=== PATIENT | female | born 1935 | race Caucasian/White ===

== ENCOUNTER 2018-07-29 21:17 | Emergency (ER) | payer OTHER ==
[~2018-07-29] VITALS: Ht 147.3 cm; Wt 61.2 kg
[~2018-07-29 21:17] MED LIST: ALBU.083IS IH; ALBU3IS INH; ALBU90OI INH; ALBU90OI61 INH; ALEN70 PO; AMIT25 PO; AZEL137S NS; AZIT250 PO; Allegra-D 12 H1 EACH PO; BISA5EC PO; BUDE6HFA; BUDE6HFA INH; BUSP10 PO; CALCIUM 600 +1 EA10 PO; CONEST.625 PO; DOCU100 PO; ENDOCET 2.5-321 EACH PO; FEXPSEER PO; FISH1000 PO; FLUC100 PO; FURO40 PO; GUAI600T33 PO; HYDACE5 PO; HYDMOR2 PO; LEVFLO500 PO; LEVO750 PO; LIDO5TP TOP; LISHYD2025 PO; LOPE2C PO; METO25 PO; METO25ER PO; MIRALAX17 GM PO; Mucinex1200 MG PO; Mucinex600 MG PO; NICO21TP TOP; Neurontin 100100 MG PO; OXAYDO7.5 MG PO; OXYACE5T PO; PANT40 PO; POTCHL10ER PO; POTCHL20ER PO; PRED10 PO; PRED20 PO; PROLIA60 MG/1 ML SQ; Percocet 5-3251 EACH PO; Prednisone20 MG PO; Prevalite Pac4 G/PKT; Protonix40 MG PO; ROXICODONE5 MG PO; SENN187 PO; SODCHL.65S; TIOT18 IH; TIOT18 INH; TRAZ50 PO; VOLTAREN100 GM TOP; Ventolin Soln3 ML INH; Vitamin D2000 UNIT PO; Zithromax250 MG PO; [UNRECOGNIZED DRUG - OTHER] PO
[2018-07-29 22:28] LABS: Source, Urine Clean Catch
[2018-07-29 22:33] LABS: BASOPHILS ABSOLUTE AUTO 0.04 K/mm3 (0.00-0.23); BASOPHILS PERCENT AUTO 1 % (0-2); Bilirubin, Urine Neg (Neg); Blood, Urine Neg (Neg); EOSINOPHILS ABSOLUTE AUTO 0.19 K/mm3 (0.00-0.68); EOSINOPHILS PERCENT AUTO 3 % (0-6); Glucose Qualitative, Urine Neg (Neg); Hematocrit 44.4 % (33.0-51.0); Hemoglobin 14.5 g/dL (11.5-16.0); IMMATURE GRAN ABSOLUTE AUTO 0.02 K/mm3 (0.00-0.10); IMMATURE GRAN PERCENT AUTO 0 % (0-1); Ketones, Urine Neg (Neg); LYMPHOCYTES ABSOLUTE AUTO 2.36 K/mm3 (0.84-5.20); LYMPHOCYTES PERCENT AUTO 34 % (21-46); Leukocyte Esterase, Urine Neg (Neg); MONOCYTES ABSOLUTE AUTO 0.49 K/mm3 (0.16-1.47); MONOCYTES PERCENT AUTO 7 % (4-13); Mean Corpuscular HGB 29.8 pg (26.0-34.0); Mean Corpuscular HGB Conc 32.7 g/dL (31.5-36.5); Mean Corpuscular Volume 91 fL (80-100); Mean Platelet Volume 9.3 fL (9.1-12.4); NEUTROPHILS ABSOLUTE AUTO 3.76 K/mm3 (1.96-9.15); NEUTROPHILS PERCENT AUTO 55 % (41-73); Nitrite, Urine Neg (Neg); Platelet Count 318 K/mm3 (150-400); Protein, Urine Neg (Neg); RDW Coefficient Variation 12.9 % (11.7-14.2); RDW Standard Deviation 43.1 fL (35.1-46.3); Red Blood Cell Count 4.87 M/mm3 (3.80-5.20); Specific Gravity, Urine 1.015 (1.003-1.022); Urobilinogen, Urine NORM (Normal); White Blood Cell Count 6.86 K/mm3 (4.00-11.30)
[2018-07-29 22:35] LABS: Appearance, Urine Clear (Clear); Color, Urine Yellow (P-Yellow)
[2018-07-29 22:50] LABS: Albumin, Blood 3.9 g/dL (3.4-5.0); Albumin/Globulin Ratio 1.1 (0.8-1.8); Bilirubin, Total 0.3 mg/dL (0.1-1.0); Bun/Creatinine Ratio 16.7 (12.0-20.0); Calcium, Blood 9.4 mg/dL (8.5-10.1); Creatinine, Blood 1.14 mg/dL (0.40-1.00); Globulin, Blood 3.7 g/dL (2.2-4.0); Potassium, Blood 3.9 mmol/L (3.5-5.5); Total Protein, Blood 7.6 g/dL (6.4-8.2)
== END 2018-07-30 00:13 | disposition home or self-care (01) ==
LOC: ER 21:17
PROVIDERS: Physician Assistant
DX: I10 Essential (primary) hypertension (principal); N95.2 Postmenopausal atrophic vaginitis; Z88.0 Allergy status to penicillin; Z88.1 Allergy status to other antibiotic agents; Z79.899 Other long term (current) drug therapy; J44.9 Chronic obstructive pulmonary disease, unspecified; F41.9 Anxiety disorder, unspecified; K21.9 Gastro-esophageal reflux disease without esophagitis; F17.210 Nicotine dependence, cigarettes, uncomplicated
CPT/HCPCS: 36415; 80053; 81003; 84484; 85025; 93005; 93010; 99284-25

== ENCOUNTER 2018-08-23 20:24 | Emergency (ER) | payer OTHER ==
[~2018-08-23] VITALS: Ht 147.3 cm; Wt 59.0 kg
[2018-08-23 21:36] LABS: BASOPHILS ABSOLUTE AUTO 0.01 K/mm3 (0.00-0.23); BASOPHILS PERCENT AUTO 0 % (0-2); EOSINOPHILS PERCENT AUTO 0 % (0-6); Hematocrit 41.3 % (33.0-51.0); Hemoglobin 13.2 g/dL (11.5-16.0); IMMATURE GRAN ABSOLUTE AUTO 0.05 K/mm3 (0.00-0.10); IMMATURE GRAN PERCENT AUTO 1 % (0-1); LYMPHOCYTES ABSOLUTE AUTO 0.47 K/mm3 (0.84-5.20); LYMPHOCYTES PERCENT AUTO 6 % (21-46); MONOCYTES ABSOLUTE AUTO 0.33 K/mm3 (0.16-1.47); MONOCYTES PERCENT AUTO 4 % (4-13); Mean Corpuscular HGB 29.2 pg (26.0-34.0); Mean Corpuscular Volume 91 fL (80-100); NEUTROPHILS ABSOLUTE AUTO 6.64 K/mm3 (1.96-9.15); NEUTROPHILS PERCENT AUTO 89 % (41-73); Platelet Count 262 K/mm3 (150-400); RDW Coefficient Variation 13.2 % (11.7-14.2); RDW Standard Deviation 44.3 fL (35.1-46.3); Red Blood Cell Count 4.52 M/mm3 (3.80-5.20)
[2018-08-23 21:50] LABS: Alanine Aminotransfer (ALT/SGP 15 U/L (12-78); Albumin, Blood 3.9 g/dL (3.4-5.0); Albumin/Globulin Ratio 1.2 (0.8-1.8); Alk Phos 52 U/L (50-136); Anion Gap 13 mmol/L (6-16); Aspartate Aminotrans (AST/SGOT 19 U/L (12-37); Bilirubin, Total 0.6 mg/dL (0.1-1.0); Blood Urea Nitrogen 23 mg/dL (8-24); Bun/Creatinine Ratio 22.1 (12.0-20.0); CO2, Blood 25 mmol/L (21-32); Calcium, Blood 9.5 mg/dL (8.5-10.1); Chloride, Blood 98 mmol/L (98-108); Creatinine, Blood 1.04 mg/dL (0.40-1.00); Globulin, Blood 3.2 g/dL (2.2-4.0); Glomerular Filtration Rate 54 (60-); Glucose, Blood 134 mg/dL (70-99); Potassium, Blood 3.9 mmol/L (3.5-5.5); Sodium, Blood 136 mmol/L (136-145); Total Protein, Blood 7.1 g/dL (6.4-8.2); Troponin I <0.015 ng/mL (0.000-0.040)
[2018-08-23 22:50] LABS: Source, Urine Clean Catch
[2018-08-23 22:54] LABS: Bilirubin, Urine Neg (Neg); Blood, Urine 2+ (Neg); Glucose Qualitative, Urine Neg (Neg); Ketones, Urine Neg (Neg); Leukocyte Esterase, Urine Neg (Neg); Nitrite, Urine Neg (Neg); Protein, Urine Neg (Neg); Specific Gravity, Urine 1.005 (1.003-1.022); Urobilinogen, Urine NORM (Normal); pH, Urine 6.5 (5.0-8.0)
[2018-08-23 23:01] LABS: Appearance, Urine Clear (Clear); Bacteria Not Seen /hpf; Color, Urine Yellow (P-Yellow); Red Blood Cells, Urine Rare /hpf (0-2); Squamous Epithelial Cells Rare /hpf (Few); White Blood Cells, Urine Not Seen /hpf (0-5)
== END 2018-08-24 02:29 | disposition home or self-care (01) ==
LOC: ER 20:24
PROVIDERS: Emergency Medicine
DX: J44.9 Chronic obstructive pulmonary disease, unspecified (principal); Z99.81 Dependence on supplemental oxygen; R07.9 Chest pain, unspecified; Z88.0 Allergy status to penicillin; Z88.1 Allergy status to other antibiotic agents; Z79.899 Other long term (current) drug therapy; I10 Essential (primary) hypertension; F41.9 Anxiety disorder, unspecified; K21.9 Gastro-esophageal reflux disease without esophagitis; E78.00 Pure hypercholesterolemia, unspecified; F17.200 Nicotine dependence, unspecified, uncomplicated
CPT/HCPCS: 36415; 71046; 71260; 80053; 81001; 83690; 84484; 85025; 93005; 93010; 99284-25; Q9967

== ENCOUNTER 2019-01-05 12:10 | Emergency (ER) | payer OTHER ==
[~2019-01-05] VITALS: Ht 147.3 cm; Wt 66.7 kg
[2019-01-05 12:50] LABS: BASOPHILS ABSOLUTE AUTO 0.03 K/mm3 (0.00-0.23); BASOPHILS PERCENT AUTO 1 % (0-2); EOSINOPHILS ABSOLUTE AUTO 0.16 K/mm3 (0.00-0.68); EOSINOPHILS PERCENT AUTO 3 % (0-6); Hematocrit 37.4 % (33.0-51.0); Hemoglobin 12.2 g/dL (11.5-16.0); IMMATURE GRAN ABSOLUTE AUTO 0.01 K/mm3 (0.00-0.10); IMMATURE GRAN PERCENT AUTO 0 % (0-1); LYMPHOCYTES ABSOLUTE AUTO 0.84 K/mm3 (0.84-5.20); LYMPHOCYTES PERCENT AUTO 18 % (21-46); MONOCYTES ABSOLUTE AUTO 0.41 K/mm3 (0.16-1.47); MONOCYTES PERCENT AUTO 9 % (4-13); Mean Corpuscular HGB Conc 32.6 g/dL (31.5-36.5); Mean Corpuscular Volume 92 fL (80-100); Mean Platelet Volume 9.1 fL (9.1-12.4); NEUTROPHILS ABSOLUTE AUTO 3.22 K/mm3 (1.96-9.15); NEUTROPHILS PERCENT AUTO 69 % (41-73); Platelet Count 283 K/mm3 (150-400); RDW Coefficient Variation 13.4 % (11.7-14.2); RDW Standard Deviation 44.5 fL (35.1-46.3); Red Blood Cell Count 4.07 M/mm3 (3.80-5.20); White Blood Cell Count 4.67 K/mm3 (4.00-11.30)
[2019-01-05 13:16] LABS: Alanine Aminotransfer (ALT/SGP 21 U/L (12-78); Albumin, Blood 3.4 g/dL (3.4-5.0); Alk Phos 68 U/L (50-136); Anion Gap 7 mmol/L (6-16); Aspartate Aminotrans (AST/SGOT 16 U/L (12-37); Bilirubin, Total 0.4 mg/dL (0.1-1.0); Blood Urea Nitrogen 17 mg/dL (8-24); Bun/Creatinine Ratio 17.6 (12.0-20.0); CO2, Blood 31 mmol/L (21-32); Calcium, Blood 8.6 mg/dL (8.5-10.1); Chloride, Blood 101 mmol/L (98-108); Creatinine, Blood 0.97 mg/dL (0.40-1.00); Globulin, Blood 3.5 g/dL (2.2-4.0); Glomerular Filtration Rate 59 (60-); Glucose, Blood 89 mg/dL (70-99); Potassium, Blood 3.6 mmol/L (3.5-5.5); Sodium, Blood 139 mmol/L (136-145); Total Protein, Blood 6.9 g/dL (6.4-8.2); Troponin I <0.015 ng/mL (0.000-0.040)
[2019-01-05] MEDS ORDERED: OMEPRAZOLE MAGN20 MG PO (16:49)
[2019-01-05] MEDS ORDERED: Percocet 5-3251 EACH PO (16:49)
== END 2019-01-05 17:11 | disposition home or self-care (01) ==
LOC: ER 12:10
PROVIDERS: Physician Assistant
DX: R07.2 Precordial pain (principal); Z88.0 Allergy status to penicillin; Z88.1 Allergy status to other antibiotic agents; Z79.899 Other long term (current) drug therapy; J44.9 Chronic obstructive pulmonary disease, unspecified; I10 Essential (primary) hypertension; F41.9 Anxiety disorder, unspecified; K21.9 Gastro-esophageal reflux disease without esophagitis; E78.00 Pure hypercholesterolemia, unspecified; F17.200 Nicotine dependence, unspecified, uncomplicated; Z85.118 Personal history of other malignant neoplasm of bronchus and lung
CPT/HCPCS: 36415; 71046; 80053; 83690; 84484; 85025; 93005; 93010; 96374; 99284-25

== ENCOUNTER 2020-07-09 01:25 | Emergency (ER) | payer OTHER ==
[~2020-07-09] VITALS: Ht 147.3 cm; Wt 57.6 kg
[~2020-07-09 01:25] MED LIST changes: +OMEPRAZOLE MAGN20 MG PO
[2020-07-09] MEDS ORDERED: LIDO700A20 TOP (04:06)
== END 2020-07-09 04:51 | disposition home or self-care (01) ==
LOC: ER 01:25
DX: M54.5 Low back pain (principal); G89.29 Other chronic pain; F17.200 Nicotine dependence, unspecified, uncomplicated; J44.9 Chronic obstructive pulmonary disease, unspecified; I10 Essential (primary) hypertension; K21.9 Gastro-esophageal reflux disease without esophagitis; Z79.899 Other long term (current) drug therapy; Z88.0 Allergy status to penicillin; Z88.1 Allergy status to other antibiotic agents; Z99.81 Dependence on supplemental oxygen
CPT/HCPCS: 99284; A9270

== ENCOUNTER 2020-09-12 10:35 | Emergency (ER) | payer OTHER ==
[~2020-09-12] VITALS: Ht 147.3 cm; Wt 55.3 kg
[~2020-09-12 10:35] MED LIST changes: +LIDO700A20 TOP
[2020-09-12 11:25] LABS: BASOPHILS ABSOLUTE AUTO 0.04 K/mm3 (0.00-0.23); BASOPHILS PERCENT AUTO 0 % (0-2); EOSINOPHILS ABSOLUTE AUTO 0.17 K/mm3 (0.00-0.68); EOSINOPHILS PERCENT AUTO 1 % (0-6); Hematocrit 41.2 % (33.0-51.0); Hemoglobin 13.4 g/dL (11.5-16.0); IMMATURE GRAN ABSOLUTE AUTO 0.04 K/mm3 (0.00-0.10); IMMATURE GRAN PERCENT AUTO 0 % (0-1); LYMPHOCYTES ABSOLUTE AUTO 0.96 K/mm3 (0.84-5.20); LYMPHOCYTES PERCENT AUTO 7 % (21-46); MONOCYTES ABSOLUTE AUTO 0.58 K/mm3 (0.16-1.47); MONOCYTES PERCENT AUTO 4 % (4-13); Mean Corpuscular HGB 29.9 pg (26.0-34.0); Mean Corpuscular HGB Conc 32.5 g/dL (31.5-36.5); Mean Corpuscular Volume 92 fL (80-100); Mean Platelet Volume 8.8 fL (9.1-12.4); NEUTROPHILS ABSOLUTE AUTO 12.07 K/mm3 (1.96-9.15); NEUTROPHILS PERCENT AUTO 87 % (41-73); Platelet Count 299 K/mm3 (150-400); RDW Coefficient Variation 13.4 % (11.7-14.2); RDW Standard Deviation 45.2 fL (35.1-46.3); Red Blood Cell Count 4.48 M/mm3 (3.80-5.20); White Blood Cell Count 13.86 K/mm3 (4.00-11.30)
[2020-09-12 11:52] LABS: Alanine Aminotransfer (ALT/SGP 18 U/L (12-78); Albumin, Blood 3.6 g/dL (3.4-5.0); Alk Phos 75 U/L (50-136); Anion Gap 6 mmol/L (6-16); Aspartate Aminotrans (AST/SGOT 19 U/L (12-37); Bilirubin, Total 0.5 mg/dL (0.1-1.0); Blood Urea Nitrogen 11 mg/dL (8-24); Bun/Creatinine Ratio 13.8 (12.0-20.0); CO2, Blood 30 mmol/L (21-32); Calcium, Blood 9.4 mg/dL (8.5-10.1); Chloride, Blood 102 mmol/L (98-108); Globulin, Blood 3.7 g/dL (2.2-4.0); Glomerular Filtration Rate >60 (60-); Glucose, Blood 86 mg/dL (70-99); Potassium, Blood 4.2 mmol/L (3.5-5.5); Sodium, Blood 138 mmol/L (136-145); Total Protein, Blood 7.3 g/dL (6.4-8.2); Troponin I <0.015 ng/mL (0.000-0.040)
[2020-09-12] MEDS ORDERED: OXYACE7.5T PO (11:52)
[2020-09-12] MEDS ORDERED: LOSA50 PO (11:54)
[2020-09-12] MEDS ORDERED: CLON.1 PO (11:55)
[2020-09-12] MEDS ORDERED: ALPR.5 PO (11:56)
[2020-09-12] MEDS ORDERED: CONEST.625 PO (11:57)
[2020-09-12] MEDS ORDERED: Prednisone20 MG PO (13:56)
[2020-09-12] MEDS ORDERED: Bactrim Ds Tab1 EACH PO (13:56)
== END 2020-09-12 14:17 | disposition home or self-care (01) ==
LOC: ER 10:35
PROVIDERS: Emergency Medicine
DX: J44.1 Chronic obstructive pulmonary disease with (acute) exacerbation (principal); Z79.899 Other long term (current) drug therapy; Z79.51 Long term (current) use of inhaled steroids; Z88.0 Allergy status to penicillin; Z88.1 Allergy status to other antibiotic agents
CPT/HCPCS: 36415; 71045; 80053; 83880; 84484; 85025; 93005; 93010; 94644; 96374; 99285-25; J2930

== ENCOUNTER 2021-01-01 22:53 | Emergency (ER) | payer OTHER ==
[~2021-01-01] VITALS: Ht 160 cm; Wt 77.1 kg
[~2021-01-01 22:53] MED LIST changes: +ALPR.5 PO; +Bactrim Ds Tab1 EACH PO; +CLON.1 PO; +LOSA50 PO; +OXYACE7.5T PO
== END 2021-01-01 23:43 | disposition home or self-care (01) ==
LOC: ER 22:53
DX: G89.29 Other chronic pain (principal); M25.559 Pain in unspecified hip; Z76.0 Encounter for issue of repeat prescription; Z88.1 Allergy status to other antibiotic agents; Z88.0 Allergy status to penicillin; Z79.899 Other long term (current) drug therapy
CPT/HCPCS: 96374; 99283-25; A9270; J1885

== ENCOUNTER → 2021-01-26 | Outpatient (CLI) | payer OTHER ==
[2021-01-26 16:28] LABS: U Amphetamine Screen Not Detected; U Barbituate Screen Not Detected; U Benzodiazapine Screen Not Detected; U Buprenorphine Screen Not Detected; U Cannabinoids Screen Not Detected; U Cocaine Screen Not Detected; U Methadone Screen Not Detected; U Methamphetamine Screen Not Detected; U Opiates Screen Not Detected; U Oxycodone Screen DETECTED; U Phencyclidine Screen Not Detected; U Propoxyphene Screen Not Detected
== END | disposition home or self-care (01) ==
LOC: LAB 13:07 → LAB SHORT 13:07 → LAB FUT 01-26 13:05
PROVIDERS: Nurse Practitioner Family
DX: E11.42 Type 2 diabetes mellitus with diabetic polyneuropathy (principal); Z79.891 Long term (current) use of opiate analgesic
CPT/HCPCS: 82043

== ENCOUNTER 2022-12-05 01:46 | Emergency (ER) | payer OTHER ==
[~2022-12-05] VITALS: Ht 147.3 cm; Wt 51.7 kg
[2022-12-05 01:53] VITALS: BP 156/70
== END 2022-12-05 05:15 | disposition home or self-care (01) ==
LOC: ER 01:46
DX: R19.5 Other fecal abnormalities (principal); J44.9 Chronic obstructive pulmonary disease, unspecified; G40.909 Epilepsy, unspecified, not intractable, without status epilepticus; I12.9 Hypertensive chronic kidney disease with stage 1 through stage 4 chronic kidney disease, or unspecified chronic kidney disease; N18.9 Chronic kidney disease, unspecified; K21.9 Gastro-esophageal reflux disease without esophagitis; F17.210 Nicotine dependence, cigarettes, uncomplicated; Z85.118 Personal history of other malignant neoplasm of bronchus and lung; Z88.0 Allergy status to penicillin; Z88.1 Allergy status to other antibiotic agents; Z79.52 Long term (current) use of systemic steroids; Z79.51 Long term (current) use of inhaled steroids; Z79.899 Other long term (current) drug therapy
CPT/HCPCS: 99282

== ENCOUNTER 2023-01-16 03:27 | Observation (INO) | payer OTHER ==
[~2023-01-16] VITALS: Ht 147.3 cm; Wt 49.1 kg
[~2023-01-16 03:27] MED LIST changes: +ASPIR 8181 M1 PO
[2023-01-16 04:16] LABS: BASOPHILS ABSOLUTE AUTO 0.04 K/mm3 (0.00-0.23); BASOPHILS PERCENT AUTO 1 % (0-2); EOSINOPHILS ABSOLUTE AUTO 0.13 K/mm3 (0.00-0.68); EOSINOPHILS PERCENT AUTO 3 % (0-6); Hemoglobin 13.3 g/dL (11.5-16.0); IMMATURE GRAN ABSOLUTE AUTO 0.01 K/mm3 (0.00-0.10); IMMATURE GRAN PERCENT AUTO 0 % (0-1); LYMPHOCYTES ABSOLUTE AUTO 1.31 K/mm3 (0.84-5.20); LYMPHOCYTES PERCENT AUTO 34 % (21-46); MONOCYTES ABSOLUTE AUTO 0.44 K/mm3 (0.16-1.47); MONOCYTES PERCENT AUTO 11 % (4-13); Mean Corpuscular HGB Conc 32.4 g/dL (31.5-36.5); Mean Corpuscular Volume 89 fL (80-100); Mean Platelet Volume 9.3 fL (9.1-12.4); NEUTROPHILS ABSOLUTE AUTO 1.97 K/mm3 (1.96-9.15); NEUTROPHILS PERCENT AUTO 51 % (41-73); Platelet Count 225 K/mm3 (150-400); RDW Coefficient Variation 13.9 % (11.7-14.2); Red Blood Cell Count 4.59 M/mm3 (3.80-5.20)
[2023-01-16 04:40] LABS: Albumin, Blood 3.8 g/dL (3.4-5.0); Albumin/Globulin Ratio 1.2 (0.8-1.8); Bilirubin, Total 0.4 mg/dL (0.1-1.0); Bun/Creatinine Ratio 10.6 (12.0-20.0); Calcium, Blood 9.1 mg/dL (8.5-10.1); Creatinine, Blood 0.85 mg/dL (0.40-1.00); Globulin, Blood 3.2 g/dL (2.2-4.0); Potassium, Blood 3.9 mmol/L (3.5-5.5)
[2023-01-16] MEDS ORDERED: SYMBICORT 160-4.6 GM INH (08:42)
[2023-01-16] MEDS ORDERED: SODCHL1 (08:43)
[2023-01-16] MEDS ORDERED: METO50 PO (08:44)
[2023-01-16] MEDS ORDERED: ATROVENT HFA12.9 GM INH (08:44)
[2023-01-16] MEDS ORDERED: CATAPRES0.1 MG PO (08:45)
[2023-01-16] MEDS ORDERED: LOSA50 PO (08:45)
[2023-01-16] MEDS ORDERED: FURO40 PO (08:45)
[2023-01-16] MEDS ORDERED: POTCIT10 PO (08:46)
[2023-01-16] MEDS ORDERED: CALC.25 PO (08:47)
[2023-01-16] MEDS ORDERED: FENO48 PO (08:47)
[2023-01-16] MEDS ORDERED: Percocet 10-321 EACH PO (08:48)
[2023-01-16] MEDS ORDERED: MOVANTIK25 M1 PO (08:48)
[2023-01-16] MEDS ORDERED: BISA10S PR (08:48)
[2023-01-16] MEDS ORDERED: MELATONIN5 M1 PO (08:49)
[2023-01-16] MEDS ORDERED: SYSTANE BALANCE10 ML (08:49)
[2023-01-16] MEDS ORDERED: PRED20 LEFTEYE (08:50)
[2023-01-16] MEDS ORDERED: DICLOFENAC SOD100 GM LEFTEYE (08:51)
[2023-01-16] MEDS ORDERED: TIZA4 PO (08:52)
[2023-01-16] MEDS ORDERED: ASPI81CH (08:52)
[2023-01-16 11:23] VITALS: BP 145/75
[2023-01-16 12:15] VITALS: BP 135/70
--- NOTE | 2023-01-16 13:00 | NUR ---
Discussed with the patient the risks of inginition sources and hazards associated with them, particularly in hospital and use of oxygen. Pt states that she only smokes occasionally, about 3 cigarettes/day but that the last time she smoked was about a week ago and only took one drag and then put it out, saying to herself that smoking is just stupid. Explained to pt that ignition sources as well as use of tobacco products are strictly prohibited on hospital campus. She looked through her belongings of her own volition and voluntarily gave me a chaplaincy which she found, and asked me to throw it away. She said that smoking is just stupid and she doesn't want to smoke anymore so would like to get rid of it. Pt was also advised that any visitors are not allowed to brink any sources of ignition to the hospital. She verbalized agreement and assent.
--- NOTE | 2023-01-16 13:11 | NUR ---
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 Given oxycodone and tylenol for relief at this time.
[2023-01-16 16:53] VITALS: BP 99/62
--- NOTE | 2023-01-16 17:48 | NUR ---
Pt was awakened just before 1700 for vital signs check; blood pressure noted low and pt states that she woke up cold and sweaty. Gown is damp, but she is afebrile, checked temporally and then orally. Denies feeling febrile. States she has not had this before today. Pt assisted to refresh and changed linens. She is drinking decaf coffee and eating dinner. States that her chronic pain is creeping up, now 5. She took pain medicaions at 1300; states that she usually takes it at home every 6 hours.
--- NOTE | 2023-01-16 19:01 | NUR ---
C/O Headache, back of head /. Blood pressure is normal. heart rate 66 bpm. Medicated for pain per prn orders.
[2023-01-16 20:17] VITALS: BP 104/89
[2023-01-16 23:07] VITALS: BP 111/51
[2023-01-17 04:05] VITALS: BP 121/63
[2023-01-17 04:50] LABS: Calcium, Blood 8.9 mg/dL (8.5-10.1); Creatinine, Blood 1.05 mg/dL (0.40-1.00); Potassium, Blood 3.8 mmol/L (3.5-5.5)
--- NOTE | 2023-01-17 05:43 | NUR ---
SHIFT SUMMARY NO ACUTE CHANGES THIS SHIFT. PT AXO. IN SR. BP STABLE. ON 2LNC, SPO2 >94%. OCCIPITAL REGION HEADACHE NOTED, MEDS PER EMAR EFFECTIVE AT BRINGING TO TOLERABLE PAIN LEVEL. PT RESTING FOR MAJORITY OF SHIFT. BED ALARM IN PLACE. IGNITION ASSESMENT COMPLETED. EDUCATION PROVIDED.
[2023-01-17 07:57] VITALS: BP 125/84
--- NOTE | 2023-01-17 08:10 | NUR ---
Pt assisted up to recliner, minimal amount of help needed. She states she is feeling well today. States that she had another episode of night sweats last night. Also states that her headache in the back of her head is not severe, but is ongoing. Granddaughter is at the bedside, willing to be part of the discharge planning as she would move in with the patient to help out as needed.
[2023-01-17] MEDS ORDERED: NICO2 PO (11:34)
[2023-01-17] MEDS ORDERED: Prinivil10 MG PO (11:36)
[2023-01-17] MEDS ORDERED: BUSP5 PO (11:37)
[2023-01-17] MEDS ORDERED: TIZA4 PO (12:00)
== END 2023-01-17 12:29 | disposition home or self-care (01) ==
LOC: ER 03:27 → PCU 03:28
PROVIDERS: Emergency Medicine; ADMIT Internal Medicine
DX: I16.0 Hypertensive urgency (principal); G45.9 Transient cerebral ischemic attack, unspecified; M79.7 Fibromyalgia; M81.0 Age-related osteoporosis without current pathological fracture; I12.9 Hypertensive chronic kidney disease with stage 1 through stage 4 chronic kidney disease, or unspecified chronic kidney disease; N18.31 Chronic kidney disease, stage 3a; J44.9 Chronic obstructive pulmonary disease, unspecified; F17.200 Nicotine dependence, unspecified, uncomplicated; Z79.899 Other long term (current) drug therapy; Z79.51 Long term (current) use of inhaled steroids; Z79.82 Long term (current) use of aspirin; Z85.118 Personal history of other malignant neoplasm of bronchus and lung
CPT/HCPCS: 36415; 80048; 80053; 85025; 93005; 93010; 93975; 94640; 94664; 94760; 94762; 96365; 96366; 96375; 99284-25; A9270; G0378; J0360; J1940; J7512

== ENCOUNTER 2023-04-14 00:51 | Emergency (ER) | payer OTHER ==
[~2023-04-14] VITALS: Ht 147.3 cm; Wt 52.2 kg
[~2023-04-14 00:51] MED LIST changes: +ASPI81CH; +ATROVENT HFA12.9 GM INH; +BISA10S PR; +BUSP5 PO; +CALC.25 PO; +CATAPRES0.1 MG PO; +DICLOFENAC SOD100 GM LEFTEYE; +FENO48 PO; +MELATONIN5 M1 PO; +METO50 PO; +MOVANTIK25 M1 PO; +NICO2 PO; +POTCIT10 PO; +PRED20 LEFTEYE; +Percocet 10-321 EACH PO; +Prinivil10 MG PO; +SODCHL1; +SYMBICORT 160-4.6 GM INH; +SYSTANE BALANCE10 ML; +TIZA4 PO
[2023-04-14 03:37] LABS: BASOPHILS ABSOLUTE AUTO 0.04 K/mm3 (0.00-0.23); BASOPHILS PERCENT AUTO 1 % (0-2); EOSINOPHILS ABSOLUTE AUTO 0.15 K/mm3 (0.00-0.68); EOSINOPHILS PERCENT AUTO 4 % (0-6); Hematocrit 42.8 % (33.0-51.0); Hemoglobin 14.1 g/dL (11.5-16.0); IMMATURE GRAN ABSOLUTE AUTO 0.01 K/mm3 (0.00-0.10); IMMATURE GRAN PERCENT AUTO 0 % (0-1); LYMPHOCYTES ABSOLUTE AUTO 1.18 K/mm3 (0.84-5.20); LYMPHOCYTES PERCENT AUTO 27 % (21-46); MONOCYTES ABSOLUTE AUTO 0.35 K/mm3 (0.16-1.47); MONOCYTES PERCENT AUTO 8 % (4-13); Mean Corpuscular HGB 29.6 pg (26.0-34.0); Mean Corpuscular HGB Conc 32.9 g/dL (31.5-36.5); Mean Corpuscular Volume 90 fL (80-100); Mean Platelet Volume 9.2 fL (9.1-12.4); NEUTROPHILS ABSOLUTE AUTO 2.57 K/mm3 (1.96-9.15); NEUTROPHILS PERCENT AUTO 60 % (41-73); Platelet Count 272 K/mm3 (150-400); RDW Coefficient Variation 12.6 % (11.7-14.2); RDW Standard Deviation 41.4 fL (35.1-46.3); Red Blood Cell Count 4.77 M/mm3 (3.80-5.20)
[2023-04-14 03:53] LABS: Albumin, Blood 4.3 g/dL (3.4-5.0); Albumin/Globulin Ratio 1.2 (0.8-1.8); Bilirubin, Total 0.4 mg/dL (0.1-1.0); Bun/Creatinine Ratio 13.2 (12.0-20.0); Creatinine, Blood 0.99 mg/dL (0.40-1.00); Globulin, Blood 3.7 g/dL (2.2-4.0); Potassium, Blood 4.1 mmol/L (3.5-5.5)
[2023-04-14 04:13] VITALS: BP 151/70
== END 2023-04-14 08:21 | disposition home or self-care (01) ==
LOC: ER 00:51
PROVIDERS: Student in an Organized Health Care Education/Training Program
DX: I12.9 Hypertensive chronic kidney disease with stage 1 through stage 4 chronic kidney disease, or unspecified chronic kidney disease (principal); N18.9 Chronic kidney disease, unspecified; Z88.0 Allergy status to penicillin; Z88.1 Allergy status to other antibiotic agents; Z79.899 Other long term (current) drug therapy; F17.210 Nicotine dependence, cigarettes, uncomplicated; Z79.82 Long term (current) use of aspirin; J44.9 Chronic obstructive pulmonary disease, unspecified; G40.909 Epilepsy, unspecified, not intractable, without status epilepticus; Z99.81 Dependence on supplemental oxygen; K21.9 Gastro-esophageal reflux disease without esophagitis; G47.00 Insomnia, unspecified; E78.00 Pure hypercholesterolemia, unspecified
CPT/HCPCS: 80053; 85025; 99283; A9270

== ENCOUNTER 2023-04-20 11:35 | Emergency (ER) | payer OTHER ==
[~2023-04-20] VITALS: Ht 160 cm; Wt 65.8 kg
[2023-04-20 12:00] VITALS: BP 103/55
[2023-04-20 12:13] LABS: BASOPHILS ABSOLUTE AUTO 0.04 K/mm3 (0.00-0.23); BASOPHILS PERCENT AUTO 1 % (0-2); EOSINOPHILS ABSOLUTE AUTO 0.08 K/mm3 (0.00-0.68); EOSINOPHILS PERCENT AUTO 1 % (0-6); Hematocrit 35.8 % (33.0-51.0); Hemoglobin 11.3 g/dL (11.5-16.0); IMMATURE GRAN ABSOLUTE AUTO 0.02 K/mm3 (0.00-0.10); IMMATURE GRAN PERCENT AUTO 0 % (0-1); LYMPHOCYTES ABSOLUTE AUTO 1.07 K/mm3 (0.84-5.20); LYMPHOCYTES PERCENT AUTO 12 % (21-46); MONOCYTES ABSOLUTE AUTO 0.71 K/mm3 (0.16-1.47); MONOCYTES PERCENT AUTO 8 % (4-13); Mean Corpuscular HGB 29.7 pg (26.0-34.0); Mean Corpuscular HGB Conc 31.6 g/dL (31.5-36.5); Mean Platelet Volume 9.8 fL (9.1-12.4); NEUTROPHILS PERCENT AUTO 78 % (41-73); Platelet Count 243 K/mm3 (150-400); RDW Standard Deviation 44.7 fL (35.1-46.3); Red Blood Cell Count 3.81 M/mm3 (3.80-5.20); White Blood Cell Count 8.72 K/mm3 (4.00-11.30)
[2023-04-20 12:28] LABS: Albumin, Blood 3.3 g/dL (3.4-5.0); Bilirubin, Total 0.4 mg/dL (0.1-1.0); Bun/Creatinine Ratio 10.3 (12.0-20.0); Creatinine, Blood 1.45 mg/dL (0.40-1.00); Globulin, Blood 3.4 g/dL (2.2-4.0); Mean Corpuscular Volume 94 fL (80-100); Potassium, Blood 4.3 mmol/L (3.5-5.5); Total Protein, Blood 6.7 g/dL (6.4-8.2)
[2023-04-20 12:44] LABS: Influenza A, PCR NEGATIVE (NEGATIVE); Influenza B, PCR NEGATIVE (NEGATIVE); Resp Syncytial Virus, PCR NEGATIVE (NEGATIVE); SARS-Cov-2 (COVID-19) PCR, MMC NEGATIVE (NEGATIVE)
== END 2023-04-20 13:36 | disposition home or self-care (01) ==
LOC: ER 11:35
PROVIDERS: Emergency Medicine
DX: J44.1 Chronic obstructive pulmonary disease with (acute) exacerbation (principal); E86.0 Dehydration; R42 Dizziness and giddiness; Z20.822 Contact with and (suspected) exposure to COVID-19; F17.210 Nicotine dependence, cigarettes, uncomplicated; I12.9 Hypertensive chronic kidney disease with stage 1 through stage 4 chronic kidney disease, or unspecified chronic kidney disease; N18.9 Chronic kidney disease, unspecified; K21.9 Gastro-esophageal reflux disease without esophagitis; Z88.0 Allergy status to penicillin; Z88.1 Allergy status to other antibiotic agents; Z79.82 Long term (current) use of aspirin; Z79.899 Other long term (current) drug therapy
CPT/HCPCS: 0241U; 71045; 80053; 84484; 85025; 93005; 93010; 96360; 99284-25; J7030

== ENCOUNTER 2023-10-30 10:26 | Emergency (ER) | payer OTHER ==
[~2023-10-30] VITALS: Ht 147.3 cm; Wt 47.2 kg
[~2023-10-30 10:26] MED LIST changes: +ACET500 PO; -ASPI81CH; +ASPI81CH PO; +BANOPHEN25 MG PO; +CALCIUM CARBONATE PO; +DICLOFENAC SODIU5 ML LEFTEYE; +Doxycycline Mo100 M1 PO; +FUROSEMIDE40 MG PO; +IPRAT-ALBUT 0.5-3 ML NEB; +LISI20 PO; +METO50ER PO; +Nasal Spray30 M1; +ONDA8 PO; +POTA8 PO; -POTCIT10 PO; +PRED FORTE5 ML LEFTEYE; +SENNA LAXATIVE8.6 MG PO; +SODIUM CHLORIDE INH; +SODIUM CHLORIDE NEB; +SYMBICORT 16010.2 GM INH; +XANAX0.25 MG PO
[2023-10-30 10:42] VITALS: BP 160/71
== END 2023-10-30 13:38 | disposition home or self-care (01) ==
LOC: ER 10:26
DX: S00.01XA Abrasion of scalp, initial encounter (principal); C79.51 Secondary malignant neoplasm of bone; J44.9 Chronic obstructive pulmonary disease, unspecified; Z99.81 Dependence on supplemental oxygen; I12.9 Hypertensive chronic kidney disease with stage 1 through stage 4 chronic kidney disease, or unspecified chronic kidney disease; N18.9 Chronic kidney disease, unspecified; M79.7 Fibromyalgia; F41.9 Anxiety disorder, unspecified; K21.9 Gastro-esophageal reflux disease without esophagitis; K58.9 Irritable bowel syndrome, unspecified; E78.00 Pure hypercholesterolemia, unspecified; G89.29 Other chronic pain; F17.210 Nicotine dependence, cigarettes, uncomplicated; W01.0XXA Fall on same level from slipping, tripping and stumbling without subsequent striking against object, initial encounter; Z85.118 Personal history of other malignant neoplasm of bronchus and lung; Z88.0 Allergy status to penicillin; Z88.1 Allergy status to other antibiotic agents; Z79.51 Long term (current) use of inhaled steroids; Z79.899 Other long term (current) drug therapy
CPT/HCPCS: 70450; 99283-25

== ENCOUNTER 2023-11-02 22:55 | Emergency (ER) | payer OTHER ==
[~2023-11-02] VITALS: Ht 147.3 cm; Wt 52.2 kg
[2023-11-02] MEDS ORDERED: NS 1,000 ML IV SCH (23:20)
[2023-11-02 23:55] LABS: BASOPHILS ABSOLUTE AUTO 0.02 K/mm3 (0.00-0.23); BASOPHILS PERCENT AUTO 0 % (0-2); EOSINOPHILS ABSOLUTE AUTO 0.25 K/mm3 (0.00-0.68); EOSINOPHILS PERCENT AUTO 4 % (0-6); Hematocrit 28.5 % (33.0-51.0); Hemoglobin 9.2 g/dL (11.5-16.0); IMMATURE GRAN ABSOLUTE AUTO 0.01 K/mm3 (0.00-0.10); IMMATURE GRAN PERCENT AUTO 0 % (0-1); LYMPHOCYTES ABSOLUTE AUTO 1.01 K/mm3 (0.84-5.20); LYMPHOCYTES PERCENT AUTO 16 % (21-46); MONOCYTES PERCENT AUTO 10 % (4-13); Mean Corpuscular HGB 30.1 pg (26.0-34.0); Mean Corpuscular HGB Conc 32.3 g/dL (31.5-36.5); Mean Corpuscular Volume 93 fL (80-100); Mean Platelet Volume 9.1 fL (9.1-12.4); NEUTROPHILS ABSOLUTE AUTO 4.37 K/mm3 (1.96-9.15); NEUTROPHILS PERCENT AUTO 70 % (41-73); Platelet Count 220 K/mm3 (150-400); RDW Coefficient Variation 13.8 % (11.7-14.2); Red Blood Cell Count 3.06 M/mm3 (3.80-5.20); White Blood Cell Count 6.26 K/mm3 (4.00-11.30)
[2023-11-03 00:13] LABS: Albumin, Blood 2.3 g/dL (3.4-5.0); Bilirubin, Total 0.2 mg/dL (0.1-1.0); Calcium, Blood 7.4 mg/dL (8.5-10.1); Creatinine, Blood 1.32 mg/dL (0.40-1.00); Globulin, Blood 2.2 g/dL (2.2-4.0); Potassium, Blood 3.7 mmol/L (3.5-5.5); Total Protein, Blood 4.5 g/dL (6.4-8.2)
[2023-11-03 00:15] VITALS: BP 113/57
[2023-11-03] MEDS ORDERED: Azithromycin 250 MG Tab PO ONE (00:35)
[2023-11-03] MEDS ORDERED: AZIT250 PO (00:36)
== END 2023-11-03 01:05 | disposition home or self-care (01) ==
LOC: ER 22:55
PROVIDERS: Emergency Medicine
DX: J18.9 Pneumonia, unspecified organism (principal); J44.0 Chronic obstructive pulmonary disease with (acute) lower respiratory infection; I12.9 Hypertensive chronic kidney disease with stage 1 through stage 4 chronic kidney disease, or unspecified chronic kidney disease; N18.9 Chronic kidney disease, unspecified; Z88.0 Allergy status to penicillin; Z88.8 Allergy status to other drugs, medicaments and biological substances; Z79.899 Other long term (current) drug therapy; Z79.82 Long term (current) use of aspirin; Z87.891 Personal history of nicotine dependence
CPT/HCPCS: 71045; 80053; 84484; 85025; A9270; J7030

== ENCOUNTER 2023-12-08 09:03 | Inpatient (IN) | payer OTHER ==
[~2023-12-08] VITALS: Ht 147.3 cm; Wt 45.0 kg
[~2023-12-08 09:03] MED LIST changes: -Percocet 10-321 EACH PO
[2023-12-08 10:34] LABS: BASOPHILS ABSOLUTE AUTO 0.05 K/mm3 (0.00-0.23); BASOPHILS PERCENT AUTO 1 % (0-2); EOSINOPHILS ABSOLUTE AUTO 0.27 K/mm3 (0.00-0.68); EOSINOPHILS PERCENT AUTO 6 % (0-6); Hematocrit 37.3 % (33.0-51.0); Hemoglobin 11.9 g/dL (11.5-16.0); IMMATURE GRAN ABSOLUTE AUTO 0.01 K/mm3 (0.00-0.10); IMMATURE GRAN PERCENT AUTO 0 % (0-1); LYMPHOCYTES PERCENT AUTO 23 % (21-46); MONOCYTES ABSOLUTE AUTO 0.44 K/mm3 (0.16-1.47); MONOCYTES PERCENT AUTO 10 % (4-13); Mean Corpuscular HGB 30.4 pg (26.0-34.0); Mean Corpuscular HGB Conc 31.9 g/dL (31.5-36.5); Mean Corpuscular Volume 95 fL (80-100); Mean Platelet Volume 9.1 fL (9.1-12.4); NEUTROPHILS ABSOLUTE AUTO 2.67 K/mm3 (1.96-9.15); NEUTROPHILS PERCENT AUTO 60 % (41-73); Platelet Count 233 K/mm3 (150-400); RDW Coefficient Variation 14.5 % (11.7-14.2); RDW Standard Deviation 50.5 fL (35.1-46.3); Red Blood Cell Count 3.91 M/mm3 (3.80-5.20); White Blood Cell Count 4.44 K/mm3 (4.00-11.30)
[2023-12-08 10:57] LABS: Albumin/Globulin Ratio 0.9 (0.8-1.8); Bilirubin, Total 0.3 mg/dL (0.1-1.0); Bun/Creatinine Ratio 16.8 (12.0-20.0); Calcium, Blood 8.9 mg/dL (8.5-10.1); Creatinine, Blood 0.89 mg/dL (0.40-1.00); Globulin, Blood 3.2 g/dL (2.2-4.0); Potassium, Blood 4.6 mmol/L (3.5-5.5); Total Protein, Blood 6.2 g/dL (6.4-8.2)
[2023-12-08] MEDS ORDERED: Furosemide 10 MG/ML 4ML Vial IV ONE (12:10)
[2023-12-08] MEDS ORDERED: CefTRIAXone Sodium 1,000 MG in NS 100 ML IV ONE (12:15)
[2023-12-08] MEDS ORDERED: Acetaminophen 325 MG TABLET PO PRN (12:50)
[2023-12-08] MEDS ORDERED: HydrALAZINE HCl 20 MG / ML 1ML Vial IV PRN (12:50)
--- NOTE | 2023-12-08 14:57 | NUR ---
PT ARRIVED TO UNIT AT 1452.
[2023-12-08] MEDS ORDERED: OFLOXACIN 0.3% LEFTEYE SCH (15:00)
[2023-12-08] MEDS ORDERED: OPTH LEFTEYE SCH (15:00)
[2023-12-08 15:02] VITALS: BP 181/79
[2023-12-08 15:15] VITALS: BP 175/80
[2023-12-08] MEDS ORDERED: Bisacodyl 5 MG TabEC PO PRN (15:15)
[2023-12-08] MEDS ORDERED: HyDROXyzine HCl 25 MG Tab PO PRN (15:15)
[2023-12-08] MEDS ORDERED: HYDROcodone 7.5-APAP 325 TAB PO PRN (15:15)
[2023-12-08] MEDS ORDERED: Sennosides 8.6 MG Tab PO PRN (15:20)
[2023-12-08] MEDS ORDERED: ALPRAZolam 0.25 MG Tab PO PRN (15:25)
[2023-12-08] MEDS ORDERED: OxyCODONE 10/Acetamin 325 TABLET PO PRN (15:30)
[2023-12-08] MEDS ORDERED: Mometasone/Formoterol MDI 200/5 mcg 13 GM INH SCH (15:30)
[2023-12-08] MEDS ORDERED: Ofloxacin 0.3% Opth Soln 5 ML LEFTEYE SCH (16:00)
[2023-12-08] MEDS ORDERED: BUME1 PO (16:15)
[2023-12-08] MEDS ORDERED: ZYRTEC10 M2 PO (16:16)
[2023-12-08] MEDS ORDERED: Nicotine 14 MG PATCH TOP PRN (16:35)
[2023-12-08] MEDS ORDERED: Albuterol 2.5 MG/3 ML VIAL INH PRN (16:40)
[2023-12-08] MEDS ORDERED: NASAL SPRAY88 ML (16:49)
[2023-12-08] MEDS ORDERED: PROM25 (16:50)
[2023-12-08] MEDS ORDERED: NARCAN4 M1 (16:50)
[2023-12-08] MEDS ORDERED: PROM25 PO (16:51)
--- NOTE | 2023-12-08 18:41 | NUR ---
A&Ox4. PLEASANT AND COOPERATIVE WITH CARE. CALLS APPROPRIATELY AND IS ABLE TO ADVOCATE NEEDS EFFECTIVELY. AMBULATES SBA TO BSC; USES CANE AT HOME AND IS UNSTEADY ON FEET. BOWEL MOVEMENT TODAY. POLYURIA SECONDARY TO IV FUROSEMIDE IN ED. 600mL OUTPUT SINCE ADMIT TO MED FLOOR. MEDS WHOLE WITH FLUIDS. TELE SINUS RHYTHM EXCEPT WHEN AMBULATING BACK TO BED AFTER VOIDING, THEN YIELDS A-FLUTTER. INITIAL BP UPON ARRIVAL TO MEDICAL FLOOR >180 SYSTOLIC. PRN IV HYDRALAZINE ADMINISTERED AND RECHECK <180. MEDICATIONS RECONCILED WITH [facility] [employer]. INCREASED ANXIETY, STATING SHE SUFFERS FROM PANIC ATTACKS WHEN HOME. COPD PATIENT WITH BASELINE O2 USE OF 2LPM/NC. SPO2 100% UPON ARRIVAL TO MED FLOOR, BUT DESATTED TO 89% DURING ONE OF HER PANIC ATTACKS; PLACED @ 2LPM. BED IN LOWEST POSITION. CALL LIGHT WITHIN REACH. ALL NEEDS MET. REPORT TO ONCOMING RN.
[2023-12-08 19:03] VITALS: BP 175/83
[2023-12-08] MEDS ORDERED: BusPIRone HCl 5 MG Tab PO SCH (21:00)
[2023-12-08] MEDS ORDERED: TraZODone HCl 50 MG Tab PO SCH (21:00)
[2023-12-08] MEDS ORDERED: CloNIDine 0.1 MG Tab PO SCH (21:00)
[2023-12-08 22:01] VITALS: BP 146/62
[2023-12-08] MEDS ORDERED: Lidocaine 4% 1 Patch TOP SCH (22:26)
[2023-12-09 04:36] VITALS: BP 149/63
[2023-12-09 05:13] LABS: BASOPHILS ABSOLUTE AUTO 0.06 K/mm3 (0.00-0.23); BASOPHILS PERCENT AUTO 1 % (0-2); EOSINOPHILS ABSOLUTE AUTO 0.09 K/mm3 (0.00-0.68); EOSINOPHILS PERCENT AUTO 2 % (0-6); Hemoglobin 11.8 g/dL (11.5-16.0); IMMATURE GRAN ABSOLUTE AUTO 0.01 K/mm3 (0.00-0.10); IMMATURE GRAN PERCENT AUTO 0 % (0-1); LYMPHOCYTES ABSOLUTE AUTO 1.21 K/mm3 (0.84-5.20); LYMPHOCYTES PERCENT AUTO 24 % (21-46); MONOCYTES ABSOLUTE AUTO 0.36 K/mm3 (0.16-1.47); MONOCYTES PERCENT AUTO 7 % (4-13); Mean Corpuscular HGB 30.1 pg (26.0-34.0); Mean Corpuscular HGB Conc 31.9 g/dL (31.5-36.5); Mean Corpuscular Volume 94 fL (80-100); Mean Platelet Volume 9.5 fL (9.1-12.4); NEUTROPHILS ABSOLUTE AUTO 3.22 K/mm3 (1.96-9.15); NEUTROPHILS PERCENT AUTO 65 % (41-73); Platelet Count 288 K/mm3 (150-400); RDW Coefficient Variation 14.6 % (11.7-14.2); RDW Standard Deviation 50.4 fL (35.1-46.3); Red Blood Cell Count 3.92 M/mm3 (3.80-5.20); White Blood Cell Count 4.95 K/mm3 (4.00-11.30)
[2023-12-09 06:13] LABS: Bun/Creatinine Ratio 14.7 (12.0-20.0); Calcium, Blood 8.5 mg/dL (8.5-10.1); Creatinine, Blood 0.88 mg/dL (0.40-1.00); Potassium, Blood 3.6 mmol/L (3.5-5.5)
[2023-12-09 07:07] VITALS: BP 126/52
--- NOTE | 2023-12-09 08:31 | NUR ---
DR. WILSON TO BEDSIDE.
[2023-12-09] MEDS ORDERED: Furosemide 10 MG/ML 4ML Vial IV SCH (09:00)
[2023-12-09] MEDS ORDERED: Fenofibrate 67 MG Cap PO SCH (09:00)
[2023-12-09] MEDS ORDERED: Metoprolol Succinate 50 MG TABCR PO SCH (09:00)
[2023-12-09] MEDS ORDERED: Lisinopril 10 MG Tab PO SCH (09:00)
[2023-12-09] MEDS ORDERED: Aspirin 81 MG Chew PO SCH (09:00)
[2023-12-09] MEDS ORDERED: Enoxaparin 30 MG/0.3 ML SYR SC SCH (09:00)
[2023-12-09] MEDS ORDERED: Lidocaine 4% 1 Patch TOP SCH (09:00)
[2023-12-09] MEDS ORDERED: Docusate Sodium 100 MG Cap PO SCH (09:00)
[2023-12-09 09:27] VITALS: BP 147/58
--- NOTE | 2023-12-09 18:20 | NUR ---
A&Ox4. PLEASANT AND COOPERATIVE WITH CARE. CALLS APPROPRIATELY AND IS ABLE TO ADVOCATE NEEDS EFFECTIVELY. WORKED WITH PT. AMBULATES INDEPENDENTLY TO BATHROOM. TOTAL 800mL URINE OUTPUT TODAY. MEDS WHOLE WITH FLUIDS. MEDICATED x1 PRN OXY FOR PAIN AND HEADACHE. TELE SINUS WITHOUT ECTOPY. BED IN LOWEST POSITION. CALL LIGHT WITHIN REACH. ALL NEEDS MET. REPORT TO ONCOMING RN.
[2023-12-09 19:41] VITALS: BP 121/56
[2023-12-09 19:45] VITALS: BP 164/101
[2023-12-09 20:25] VITALS: BP 128/51
[2023-12-10 03:59] VITALS: BP 132/54
[2023-12-10 05:43] LABS: Bun/Creatinine Ratio 15.1 (12.0-20.0); Calcium, Blood 8.4 mg/dL (8.5-10.1); Creatinine, Blood 0.79 mg/dL (0.40-1.00); Potassium, Blood 3.6 mmol/L (3.5-5.5)
--- NOTE | 2023-12-10 07:44 | NUR ---
PATIENT REFUSED LIDOCANE PATCHES FOR CHRONIC BACK PAIN AT HS. SLEPT WELL THROUGH THE NIGHT. MAINTAINING SATS ON 2L NC. VSS, AN ISOLATED ELEVATED BP WAS RECHECKED AND FOUND TO BE WNL.
[2023-12-10 08:14] VITALS: BP 126/51
[2023-12-10] MEDS ORDERED: Calcitriol 0.25 MCG Cap PO SCH (09:00)
[2023-12-10 09:24] VITALS: BP 119/61
[2023-12-10 17:10] VITALS: BP 122/69
--- NOTE | 2023-12-10 17:23 | NUR ---
SHIFT SUMMARY PATIENT WITH HEADACHE THIS MORNING AND SOME LEFT BACK PAIN, MEDICATED PER EMAR WITH SOME RELIEF.EKG NORMAL SINUS RYTHM. SHE DENIES HEADACHE AT THIS TIME AND DENIES CHEST/BACK PAIN. BED IN LOW POSITIN, CALL LIGHT IN REACH. PATIENT ABLE [place] NEEDS KOWN
[2023-12-10 20:13] VITALS: BP 121/47
[2023-12-10] MEDS ORDERED: CloNIDine 0.1 MG Tab PO SCH (21:00)
[2023-12-11 03:11] VITALS: BP 121/45
--- NOTE | 2023-12-11 06:12 | NUR ---
Patient alert and oriented x3-4, resting comfortably in bed with cooling pack to right hip. Patient tolerating 2L oxygen when in bed, removing oxygen and ambulating to restroom independently for bathroom needs overnight.
[2023-12-11 07:37] VITALS: BP 135/64
[2023-12-11] MEDS ORDERED: Ibuprofen 400 MG Tab PO ONE (09:50)
[2023-12-11] MEDS ORDERED: Percocet 10-321 EACH PO (13:13)
[2023-12-11] MEDS ORDERED: POTA10T PO (13:13)
[2023-12-11] MEDS ORDERED: Nicoderm Cq1 EAC1 TOP (13:14)
[2023-12-11] MEDS ORDERED: METO50ER PO (13:14)
[2023-12-11] MEDS ORDERED: LIDO700A20 TOP (13:15)
[2023-12-11] MEDS ORDERED: Acetamin/Butalbital/Caffeine Tab PO PRN (13:40)
--- NOTE | 2023-12-11 14:39 | NUR ---
DISCHARGE SUMMARY PATIENT WITH CONTINUED HEADACHE TODAY, LESSENED WITH PAIN MEDICATION PER EMAR BUT STILL WORSE THAN THE LAST WEEK OR 2. PATIENT PACKET PRINTED AND FAXED TO [facility], RN TO RN REPORT GIVEN AT 1430. PATIENT IV REMOVED BY JAYDA VIDAL, AND KIA WHEELED PATIENT DOWNSTAIRS TO [employer] VIA TRANSPORT CHAIR.
== END 2023-12-11 14:24 | disposition home or self-care (01) | DRG 291 ==
LOC: ER 09:03 → MEDS 13:14 → ENPENDDIS 12-11 10:59 → MEDS 12-11 14:24
PROVIDERS: Emergency Medicine; ADMIT Family Medicine
DX: I13.0 Hypertensive heart and chronic kidney disease with heart failure and stage 1 through stage 4 chronic kidney disease, or unspecified chronic kidney disease (principal); I50.31 Acute diastolic (congestive) heart failure; J96.10 Chronic respiratory failure, unspecified whether with hypoxia or hypercapnia; F41.9 Anxiety disorder, unspecified; M54.9 Dorsalgia, unspecified; G89.29 Other chronic pain; N18.30 Chronic kidney disease, stage 3 unspecified; J44.9 Chronic obstructive pulmonary disease, unspecified; G47.00 Insomnia, unspecified; F17.210 Nicotine dependence, cigarettes, uncomplicated; F41.0 Panic disorder [episodic paroxysmal anxiety]; K21.9 Gastro-esophageal reflux disease without esophagitis; M79.7 Fibromyalgia; Z90.49 Acquired absence of other specified parts of digestive tract; Z98.890 Other specified postprocedural states; Z98.51 Tubal ligation status
CPT/HCPCS: 36415; 71045; 80048; 80053; 82947; 83880; 84145; 84484; 85025; 93005; 93010; 93306; 93971; 94640; 94760; 94761; 96374; 96375; 97110; 97162; 99285-25; A9270; J0360; J0696; J1650; J1940

== ENCOUNTER 2023-12-23 05:45 | Emergency (ER) | payer OTHER ==
[~2023-12-23] VITALS: Ht 157.5 cm; Wt 45.4 kg
[~2023-12-23 05:45] MED LIST changes: +BUME1 PO; +NARCAN4 M1; +NASAL SPRAY88 ML; +Nicoderm Cq1 EAC1 TOP; +POTA10T PO; +PROM25; +PROM25 PO; +Percocet 10-321 EACH PO; +ZYRTEC10 M2 PO
[2023-12-23 06:14] LABS: BASOPHILS ABSOLUTE AUTO 0.03 K/mm3 (0.00-0.23); BASOPHILS PERCENT AUTO 1 % (0-2); EOSINOPHILS ABSOLUTE AUTO 0.26 K/mm3 (0.00-0.68); EOSINOPHILS PERCENT AUTO 5 % (0-6); Hematocrit 34.8 % (33.0-51.0); Hemoglobin 10.9 g/dL (11.5-16.0); IMMATURE GRAN ABSOLUTE AUTO 0.02 K/mm3 (0.00-0.10); IMMATURE GRAN PERCENT AUTO 0 % (0-1); LYMPHOCYTES ABSOLUTE AUTO 1.21 K/mm3 (0.84-5.20); LYMPHOCYTES PERCENT AUTO 22 % (21-46); MONOCYTES ABSOLUTE AUTO 0.52 K/mm3 (0.16-1.47); MONOCYTES PERCENT AUTO 10 % (4-13); Mean Corpuscular HGB 30.1 pg (26.0-34.0); Mean Corpuscular HGB Conc 31.3 g/dL (31.5-36.5); Mean Corpuscular Volume 96 fL (80-100); Mean Platelet Volume 9.1 fL (9.1-12.4); NEUTROPHILS PERCENT AUTO 62 % (41-73); Platelet Count 158 K/mm3 (150-400); RDW Coefficient Variation 14.2 % (11.7-14.2); RDW Standard Deviation 49.9 fL (35.1-46.3); Red Blood Cell Count 3.62 M/mm3 (3.80-5.20); White Blood Cell Count 5.44 K/mm3 (4.00-11.30)
[2023-12-23 06:33] LABS: Albumin, Blood 2.9 g/dL (3.4-5.0); Bilirubin, Total 0.3 mg/dL (0.1-1.0); Bun/Creatinine Ratio 17.1 (12.0-20.0); Calcium, Blood 8.5 mg/dL (8.5-10.1); Creatinine, Blood 0.88 mg/dL (0.40-1.00); Globulin, Blood 2.9 g/dL (2.2-4.0); Potassium, Blood 3.9 mmol/L (3.5-5.5); Total Protein, Blood 5.8 g/dL (6.4-8.2)
[2023-12-23 07:31] LABS: Influenza A, PCR NEGATIVE (NEGATIVE); Influenza B, PCR NEGATIVE (NEGATIVE); Resp Syncytial Virus, PCR NEGATIVE (NEGATIVE); SARS-Cov-2 (COVID-19) PCR, MMC NEGATIVE (NEGATIVE)
[2023-12-23 09:00] VITALS: BP 164/56
[2023-12-26] MEDS ORDERED: CEFD300 PO (17:10)
== END 2023-12-23 09:39 | disposition home or self-care (01) ==
LOC: ER 05:45
PROVIDERS: Emergency Medicine
DX: R07.9 Chest pain, unspecified (principal); I10 Essential (primary) hypertension; J44.9 Chronic obstructive pulmonary disease, unspecified; E78.00 Pure hypercholesterolemia, unspecified; K21.9 Gastro-esophageal reflux disease without esophagitis; G47.00 Insomnia, unspecified; Z88.0 Allergy status to penicillin; Z88.1 Allergy status to other antibiotic agents; Z79.82 Long term (current) use of aspirin; Z79.52 Long term (current) use of systemic steroids; Z79.899 Other long term (current) drug therapy
CPT/HCPCS: 0241U; 71046; 80053; 83880; 84484; 85025; 93005; 93010; 99284-25

== ENCOUNTER → 2024-07-09 | Outpatient (CLI) | payer OTHER ==
[~2024-07-09] MED LIST changes: +CEFD300 PO
[2024-07-09 11:01] LABS: Source, Urine Clean Catch
[2024-07-09 13:36] LABS: Appearance, Urine Clear (Clear); Bilirubin, Urine Neg (Neg); Blood, Urine 1+ (Neg); Color, Urine Yellow (P-Yellow); Glucose Qualitative, Urine Neg (Neg); Ketones, Urine Neg (Neg); Leukocyte Esterase, Urine 2+ (Neg); Nitrite, Urine Neg (Neg); Protein, Urine 2+ (Neg); Urobilinogen, Urine NORM (Normal)
[2024-07-09 13:52] LABS: Bacteria Many /hpf; Red Blood Cells, Urine 0-2 /hpf (0-2); Squamous Epithelial Cells Many /hpf (Few); Transitional Epithelial Cells Rare /hpf (0-Rare)
== END | disposition home or self-care (01) ==
LOC: LAB 08:00 → LAB SHORT 08:00
PROVIDERS: Nurse Practitioner Family
DX: R30.0 Dysuria (principal)
CPT/HCPCS: 81001; 87086

== ENCOUNTER → 2024-08-08 | Outpatient (CLI) | payer OTHER | LOC: LAB 12:52 → LAB SHORT 12:52 | DX: R30.0 Dysuria (principal) | CPT/HCPCS: 87086 ==

== ENCOUNTER → 2025-03-26 | Outpatient (CLI) | payer OTHER ==
[2025-03-26 15:11] LABS: Source, Urine Clean Catch
[2025-03-26 18:52] LABS: Bilirubin, Urine Neg (Neg); Color, Urine Yellow (P-Yellow); Glucose Qualitative, Urine Neg (Neg); Ketones, Urine Neg (Neg); Leukocyte Esterase, Urine 3+ (Neg); Protein, Urine 2+ (Neg); Specific Gravity, Urine 1.010 (1.003-1.022); Urobilinogen, Urine NORM (Normal)
[2025-03-26 19:06] LABS: Red Blood Cells, Urine 0-2 /hpf (0-2); White Blood Cells, Urine 50-100 /hpf (0-5)
== END | disposition home or self-care (01) ==
LOC: LAB 12:00 → LAB SHORT 12:00
PROVIDERS: Nurse Practitioner Family
DX: N39.0 Urinary tract infection, site not specified (principal)
CPT/HCPCS: 81001; 87077; 87086; 87186